=== PATIENT | male | born 1965 | race Caucasian/White ===

== ENCOUNTER 2021-05-26 07:23 | Day surgery (SDC) | payer BC ==
[~2021-05-26 07:23] MED LIST: Sodium Chloride 0.9% 10 ML Syringe FLUSH PRN
[2021-05-26] MEDS ORDERED: Propofol 200 MG/20 ML SDV IV ONE (07:24)
[2021-05-26] MEDS: Lactated Ringers 1,000 ML IV SCH (08:07)
[2021-05-26 11:13] VITALS: BP 135/78; PULSE 52
== END 2021-05-26 10:04 | disposition home or self-care (01) ==
LOC: FB.SDS 07:23
PROVIDERS: ATTEND Surgery
DX: Z12.11 Encounter for screening for malignant neoplasm of colon (principal); K57.30 Diverticulosis of large intestine without perforation or abscess without bleeding; I10 Essential (primary) hypertension; E66.9 Obesity, unspecified; Z79.899 Other long term (current) drug therapy; Z98.890 Other specified postprocedural states
CPT/HCPCS: 00812-QZ; J2704; J7120